=== PATIENT | male | born 1950 | race Caucasian/White ===

== ENCOUNTER 2016-04-29 08:00 | Outpatient (CLI) | payer MEDICARE, OTHER | END 2016-04-29 08:01 | disposition home or self-care (01) | DX: J11.1 Influenza due to unidentified influenza virus with other respiratory manifestations (principal) ==

== ENCOUNTER 2016-11-14 09:32 | Emergency (ER) | payer MEDICARE ==
--- NOTE | 2016-11-14 10:19 | XRAY Preliminary Report ---
Exam: XR Chest 2 View PA/LAT IMPRESSION: Normal 2-view chest radiography. [facility] SITE ID: [id number]
[2016-11-14 10:21] LABS: BASOPHILS # (AUTO) 0.1 10^3/uL (0.0-0.1); BASOPHILS % (AUTO) 0.9 %; EOSINOPHILS # (AUTO) 0.3 10^3/uL (0.0-0.7); EOSINOPHILS % (AUTO) 2.5 %; HCT - HEMATOCRIT 43.7 % (42.0-52.0); LYMPHOCYTES # (AUTO) 2.5 10^3/uL (1.5-3.5); LYMPHOCYTES % (AUTO) 24.7 %; MEAN CORPUSCULAR HEMOGLOBIN 30.8 pg (27.0-31.0); MEAN CORPUSCULAR HGB CONC 34.3 g/dL (32.0-36.0); MEAN CORPUSCULAR VOLUME 89.8 fL (80.0-94.0); MEAN PLATELET VOLUME 8.1 fL (7.4-11.4); MONOCYTES % (AUTO) 9.8 %; NEUTROPHILS # (AUTO) 6.2 10^3/uL (1.5-6.6); NEUTROPHILS % (AUTO) 62.1 %; RED BLOOD COUNT 4.86 10^6/uL (4.70-6.10); RED CELL DISTRIBUTION WIDTH 13.7 % (12.0-15.0); UNCORRECTED WHITE BLOOD COUNT 9.9 x10^3/uL; WHITE BLOOD COUNT 9.9 x10^3/uL (4.8-10.8)
--- NOTE | 2016-11-14 10:22 | XRAY Report ---
EXAM: CHEST RADIOGRAPHY EXAM DATE: 11/14/2016 09:57 AM. CLINICAL HISTORY: Chest Pain. COMPARISON: None. TECHNIQUE: 2 views. FINDINGS: Lungs/Pleura: No focal opacities evident. No pleural effusion. No pneumothorax. Normal volumes. Mediastinum: Heart and mediastinal contours are unremarkable. Other: None. IMPRESSION: Normal 2-view chest radiography. [facility] Referring Provider Line: [phone] SITE ID: [id number]
[2016-11-14 10:33] LABS: ALBUMIN/GLOBULIN RATIO 1.3 (1.0-2.2); BILIRUBIN,TOTAL 1.5 mg/dL (0.2-1.0); CALCIUM 8.9 mg/dL (8.5-10.3); CREATININE 0.9 mg/dL (0.6-1.2); POTASSIUM 4.2 mmol/L (3.5-5.0); TOTAL PROTEIN 7.6 g/dL (6.7-8.2)
[2016-11-14] MEDS ORDERED: SODIUM CHLORIDE FLUSH 0.9% 10 ML SYRINGE IVP ONE (11:23)
[2016-11-14] MEDS ORDERED: LIDOCAINE VISCOUS 2% 15 ML UDC MM STA (11:32)
[2016-11-14] MEDS ORDERED: MAG HYDROX/AL HYDROX/SIMETH 30 ML UDC PO STA (11:32)
[2016-11-14] MEDS ORDERED: MAG HYDROX/AL HYDROX/SIMETH 30 ML UDC ONE (12:02)
[2016-11-14] MEDS ORDERED: LIDOCAINE VISCOUS 2% 15 ML UDC MM ONE (12:02)
--- NOTE | 2016-11-14 12:20 | ED Physician Documentation ---
History of Present Illness - Stated complaint Stated Complaint: CHEST PAIN - Chief complaint Chief Complaint: Cardiac - Additonal information Additional information: hx from pt 66 male x hear murmur but no know CAD developed chest pain / heaviness about midnight was 4/10 severity assoc diaphoresis no soa no fever cough no abd pain did rad to back as night progressed feels like it might be in his esophagus as he drinks water tried antacid s relief pain has subsided now to 0.5/10 but has been present to some extend for 10 hr now no leg swelling or recent travel Review of Systems Constitutional: reports: Sweats. denies: Fever, Chills Cardiac: reports: Chest pain / pressure Respiratory: denies: Dyspnea GI: denies: Abdominal Pain, Nausea, Vomiting Musculoskeletal: reports: Back pain Endocrine: denies: Easy bruising / bleeding Immunocompromised: denies: Immunocompromised PD PAST MEDICAL HISTORY - Past Medical History Cardiovascular: High cholesterol GI: GERD Derm: Herpes zoster - Past Surgical History Past Surgical History: Yes HEENT: Tonsil/Adenoidectomy - Present Medications Home Medications: Ambulatory Orders Medication Instructions Recorded Confirmed Aspirin [Lise] 325 mg PO ONCE 04/13/13 11/14/16 Famciclovir 250 mg PO DAILY 04/13/13 11/14/16 Omeprazole Magnesium 40 mg PO ONCEDAILY 04/13/13 11/14/16 Pravastatin Sodium 40 mg PO DAILY 04/13/13 11/14/16 - Allergies Allergies/Adverse Reactions: Allergies Allergy/AdvReac Type Severity Reaction Status Date / Time No Known Drug Allergies Allergy Verified 11/14/16 09:39 - Social History Does the pt smoke?: No Smoking Status: Never smoker Does the pt drink ETOH?: Yes Does the pt have substance abuse?: No - Immunizations Immunizations are current?: Yes PD ED PE NORMAL - Vitals Vital signs reviewed: Yes - HEENT HEENT: Atraumatic - Neck Neck: Supple, no meningeal sign - Cardiac Cardiac: RRR - Respiratory Respiratory: No respiratory distress - Abdomen Abdomen: Soft, Non tender, Other (no ruq TTP) - Derm Derm: Normal color, No rash - Extremities Extremities: No edema, No calf tenderness / cord - Neuro Neuro: Alert and oriented X 3 Results - Vitals Vitals: Vital Signs - 24 hr 11/14/16 11/14/16 11/14/16 09:36 10:37 11:54 Temperature 36.1 C L 36.3 C L 35.7 C L Heart Rate 78 73 63 Respiratory 18 16 15 Rate Blood Pressure 164/98 H 150/86 H 174/95 H O2 Saturation 99 96 94 11/14/16 12:51 Temperature 36.6 C Heart Rate 75 Respiratory 15 Rate Blood Pressure 155/106 H O2 Saturation 96 Oxygen O2 Source Nasal cannula - EKG (time done) 0945 Rate: Rate (enter#) (69) Rhythm: NSR Earling: Normal Intervals: Normal [place] Ischemia: Normal ST segments - Labs Labs: Laboratory Tests 11/14/16 11/14/16 11/14/16 10:15 10:15 10:15 WBC 9.9 RBC 4.86 Hgb 15.0 Hct 43.7 MCV 89.8 MCH 30.8 MCHC 34.3 RDW 13.7 Plt Count 213 MPV 8.1 Neut # 6.2 Lymph # 2.5 [place] # 1.0 Eos # 0.3 Baso # 0.1 Absolute Nucleated RBC 0.00 Nucleated RBCs 0.0 Sodium 138 Potassium 4.2 Chloride 101 Carbon Dioxide 28 Anion Gap 9.0 BUN 15 Creatinine 0.9 Estimated GFR (MDRD) 84 L Glucose 108 H Calcium 8.9 Total Bilirubin 1.5 H AST 31 ALT 38 Alkaline Phosphatase 66 Troponin I < 0.04 Total Protein 7.6 Albumin 4.3 Globulin 3.3 Albumin/Globulin Ratio 1.3 Lipase 31 - Rads (name of study) 0945 Radiology: See rad report (NACPD) PD MEDICAL DECISION MAKING - ED course ED course: EKG and CE neg after 10 hr of sx CXR no acute, nl mediastinum and pain was not sharp or tearing so doubt dissection PERC neg except age so low risk for PE pt though possibly esophogeal so tried GI cocktail s improvement and elev bili so got sono which showed a 7 mm stone and adenomyomatosis but no acute oumar will reassure and dc with referral to surgeons about GB Departure - Departure Disposition: 01 Home, Self Care Clinical Impression: Biliary colic Chest pain Qualifiers: Chest pain type: unspecified Qualified Code(s): R07.9 - Chest pain, unspecified Condition: Good Instructions: ED Gallstone W Biliary Colic, ED Chest Pain Atypical Unkn Cause Follow-Up: Bob Denise MD [Primary Care Provider] - Comments: Your heart checked out fine - after 10 hr of symptoms your EKG and cardiac enzymes were normal. I would still recommend you tale to Dr Denise about getting stress test to further evaluate you for underlying heart disease Based on your history and exam I do not think you have a blood clot in your lungs. The chest xray did now shows signs or a problem with your aorta. But your bilirubin level was elevated so we got an ultrasound which showed a probable gallstone and gallbladder polyps/benign tumors called ademomyomatosis in your gallbladder - but no signs of a gallbladder infection or blockage Since you are feeling better, it is OK for you to go home I recommend a lot fat diet to prevent further aggravating your gallbladder And follow up with Dr Denise to get a referral to the surgeons to discuss removing your gallbladder. Also please have Dr Denise recheck your blood pressure and discuss getting a stress test Return if worse
[2016-11-14 12:51] VITALS: BP 155/106
--- NOTE | 2016-11-14 13:01 | Ultrasound Preliminary Report ---
Exam: US Abdomen Limited IMPRESSION: 1. Polyp versus non-mobile stone measuring 7 mm in the gallbladder. Additional adenomyomatosis is see n. No evidence of gallbladder wall thickening to suggest cholecystitis. 2. Otherwise, unremarkable exam. [facility] SITE ID: [id number]
--- NOTE | 2016-11-14 13:04 | Ultrasound Report ---
EXAM: ABDOMEN ULTRASOUND LIMITED, RUQ EXAM DATE: 11/14/2016 12:30 PM. CLINICAL HISTORY: Chest, back and epigastric pain. COMPARISON: None. TECHNIQUE: Real-time scanning was performed with static images obtained. FINDINGS: Liver: Normal in size and echotexture. Hepatic and is 13.4 cm. Main portal vein flow: Hepatopetal. Gallbladder: There is a polyp versus a nonmobile stone measuring 7 mm. Additional focus of adenomyoma tosis is seen in the anterior gallbladder wall. No gallbladder wall thickening is seen. Negative sono graphic Campos sign. Biliary System: CBD measures 5.4 mm. No intrahepatic or extrahepatic ductal dilatation. Other: Right kidney is grossly within normal limits measuring up to 11.9 cm. Pancreas, IVC and mid/di stal aorta are obscured by bowel gas. Proximal aorta is noted to be within normal limits measuring 2. 8 cm. IMPRESSION: 1. Polyp versus non-mobile stone measuring 7 mm in the gallbladder. Additional adenomyomatosis is see n. No evidence of gallbladder wall thickening to suggest cholecystitis. 2. Otherwise, unremarkable exam. [facility] Referring Provider Line: [phone] SITE ID: [id number]
== END 2016-11-14 13:50 | disposition home or self-care (01) ==
LOC: ED 09:32
DX: K80.50 Calculus of bile duct without cholangitis or cholecystitis without obstruction (principal); R07.9 Chest pain, unspecified; E78.00 Pure hypercholesterolemia, unspecified; K21.9 Gastro-esophageal reflux disease without esophagitis; Z79.82 Long term (current) use of aspirin; R17 Unspecified jaundice
CPT/HCPCS: 36415; 71020; 76705; 80053; 83690; 84484; 85025; 93005; 99284; A9270

== ENCOUNTER 2016-11-22 08:41 | Outpatient (CLI) | payer MEDICARE ==
[2016-11-22 18:09] LABS: BASOPHILS % (AUTO) 0.8 %; EOSINOPHILS # (AUTO) 0.3 10^3/uL (0.0-0.7); EOSINOPHILS % (AUTO) 3.9 %; HCT - HEMATOCRIT 44.8 % (42.0-52.0); HGB - HEMOGLOBIN 14.9 g/dL (14.0-18.0); LYMPHOCYTES % (AUTO) 30.6 %; MEAN CORPUSCULAR HEMOGLOBIN 30.8 pg (27.0-31.0); MEAN CORPUSCULAR HGB CONC 33.3 g/dL (32.0-36.0); MEAN CORPUSCULAR VOLUME 92.4 fL (80.0-94.0); MEAN PLATELET VOLUME 8.6 fL (7.4-11.4); MONOCYTES # (AUTO) 0.6 10^3/uL (0.0-1.0); NEUTROPHILS # (AUTO) 3.6 10^3/uL (1.5-6.6); NEUTROPHILS % (AUTO) 55.7 %; NUCLEATED RED BLOOD CELLS AUTO 0.1 /100WBC; RED BLOOD COUNT 4.84 10^6/uL (4.70-6.10); RED CELL DISTRIBUTION WIDTH 13.8 % (12.0-15.0); UNCORRECTED WHITE BLOOD COUNT 6.5 x10^3/uL; WHITE BLOOD COUNT 6.5 x10^3/uL (4.8-10.8)
[2016-11-22 19:04] LABS: ALBUMIN/GLOBULIN RATIO 1.3 (1.0-2.2); BUN - BLOOD UREA NITROGEN 13 mg/dL (6-20); CALCIUM 8.8 mg/dL (8.5-10.3); CARBON DIOXIDE - CO2 27 mmol/L (21-32); CHLORIDE 102 mmol/L (101-111); CHOL/HDL RATIO 2.8 (<5.0); CHOLESTEROL 181 mg/dL; CREATININE 0.9 mg/dL (0.6-1.2); GFR - MDRD 84 (>89); GLUCOSE 83 mg/dL (70-100); HDL CHOLESTEROL 65 mg/dL; LDL/HDL RATIO 1.5 (<3.6); SODIUM 137 mmol/L (135-145); TOTAL PROTEIN 7.4 g/dL (6.7-8.2); TRIGLYCERIDES 96 mg/dL; VLDL CHOLESTEROL 19 mg/dL
[2016-11-23 13:46] LABS: PSA FREE 0.816 ng/mL (0.16-2.81)
[2016-11-23 18:44] LABS: PSA TOTAL 2.545 ng/mL (0.000-2.000)
== END 2016-11-22 08:42 | disposition home or self-care (01) ==
LOC: LAB.S 08:41
PROVIDERS: ATTEND Internal Medicine
DX: Z79.899 Other long term (current) drug therapy (principal); Z12.5 Encounter for screening for malignant neoplasm of prostate; M17.9 Osteoarthritis of knee, unspecified; E78.5 Hyperlipidemia, unspecified
CPT/HCPCS: 36415; 80053; 80061; 85025; G0103; 84153; 84154

== ENCOUNTER 2016-12-16 11:08 | Outpatient (CLI) | payer MEDICARE | END 2016-12-16 11:09 | disposition home or self-care (01) | LOC: DI 11:08 | PROVIDERS: ATTEND Internal Medicine | DX: I35.1 Nonrheumatic aortic (valve) insufficiency (principal); I51.7 Cardiomegaly; E78.5 Hyperlipidemia, unspecified | CPT/HCPCS: 93306 ==

== ENCOUNTER 2017-05-30 08:00 | Outpatient (CLI) | payer MEDICARE ==
[2017-05-30 18:48] LABS: PSA FREE 0.507 ng/mL (0.16-2.81)
[2017-05-30 18:49] LABS: PSA TOTAL 2.348 ng/mL (0.000-2.000)
== END 2017-05-30 08:01 ==
LOC: LAB.S 08:00
PROVIDERS: ATTEND Internal Medicine
DX: R89.9 Unspecified abnormal finding in specimens from other organs, systems and tissues (principal)
CPT/HCPCS: 36415; 84154

== ENCOUNTER 2017-11-28 08:00 | Outpatient (CLI) | payer MEDICARE ==
[2017-11-28 11:58] LABS: BASOPHILS # (AUTO) 0.1 10^3/uL (0.0-0.1); BASOPHILS % (AUTO) 0.9 %; EOSINOPHILS # (AUTO) 0.3 10^3/uL (0.0-0.7); EOSINOPHILS % (AUTO) 4.6 %; HGB - HEMOGLOBIN 14.7 g/dL (14.0-18.0); LYMPHOCYTES # (AUTO) 2.1 10^3/uL (1.5-3.5); LYMPHOCYTES % (AUTO) 34.4 %; MEAN CORPUSCULAR HEMOGLOBIN 31.9 pg (27.0-31.0); MEAN CORPUSCULAR HGB CONC 34.8 g/dL (32.0-36.0); MEAN CORPUSCULAR VOLUME 91.7 fL (80.0-94.0); MONOCYTES # (AUTO) 0.6 10^3/uL (0.0-1.0); NEUTROPHILS # (AUTO) 3.1 10^3/uL (1.5-6.6); NEUTROPHILS % (AUTO) 50.1 %; PLT - PLATELET COUNT 228 10^3/uL (130-450); RED CELL DISTRIBUTION WIDTH 13.8 % (12.0-15.0); WHITE BLOOD COUNT 6.1 x10^3/uL (4.8-10.8)
[2017-11-28 12:21] LABS: ALBUMIN/GLOBULIN RATIO 1.3 (1.0-2.2); ALKALINE PHOSPHATASE 60 IU/L (42-121); ALT ALANINE AMINOTRANSFERASE 28 IU/L (10-60); AST ASPARTATE AMINOTRANSFERASE 28 IU/L (10-42); BUN - BLOOD UREA NITROGEN 14 mg/dL (6-20); CHOL/HDL RATIO 2.7 (<5.0); CHOLESTEROL 191 mg/dL; GFR - MDRD 74 (>89); HDL CHOLESTEROL 71 mg/dL; LDL CHOLESTEROL,CALCULATED 103 mg/dL; LDL/HDL RATIO 1.5 (<3.6); TOTAL PROTEIN 7.2 g/dL (6.7-8.2); VLDL CHOLESTEROL 17 mg/dL
[2017-11-28 12:51] LABS: CALCIUM 8.6 mg/dL (8.5-10.3); CARBON DIOXIDE - CO2 27 mmol/L (21-32); CHLORIDE 104 mmol/L (101-111); GLUCOSE 97 mg/dL (70-100); SODIUM 138 mmol/L (135-145)
== END 2017-11-28 08:01 ==
LOC: LAB.S 08:00
PROVIDERS: ATTEND Internal Medicine
DX: Z12.5 Encounter for screening for malignant neoplasm of prostate (principal); I35.1 Nonrheumatic aortic (valve) insufficiency; M17.9 Osteoarthritis of knee, unspecified; E78.5 Hyperlipidemia, unspecified; Z79.899 Other long term (current) drug therapy
CPT/HCPCS: 36415; 80053; 80061; 85025; G0103; 83721; 84153

== ENCOUNTER 2018-04-20 09:07 | Outpatient (CLI) | payer MEDICARE ==
--- NOTE | 2018-04-20 11:29 | XRAY Report ---
Reason: BILATERAL PRIMARY OSTEOARTHRITIS OF KNEE Procedure Date: 04/20/2018 Accession Number: [id number] / [id number] Procedure: XR - Knee 3 View BILAT CPT Code: FULL RESULT: EXAMS: 1. RIGHT KNEE RADIOGRAPHY 2. LEFT KNEE RADIOGRAPHY EXAM DATE:04/20/2018 09:14 AM. CLINICAL HISTORY:Bilateral primary osteoarthritis of knee. COMPARISON: X-ray right knee 3 views 02/11/2010 10:19 AM. TECHNIQUE: 3 views each. FINDINGS: Right Knee: Bones: Normal. No fractures or bone lesions. Joints: Mild narrowing of the weight-bearing compartments, medially predominant. No effusion. No subluxations. Soft Tissues: Normal. No soft tissue swelling. Left Knee: Bones: Normal. No fractures or bone lesions. Joints: Mild narrowing of the weight-bearing compartments, medially predominant. No effusion. No subluxations. Soft Tissues: Normal. No soft tissue swelling. IMPRESSION: Mild bilateral degenerative changes. [facility]
== END 2018-04-20 09:08 | disposition home or self-care (01) ==
LOC: DI 09:07
PROVIDERS: ATTEND Internal Medicine
DX: M17.0 Bilateral primary osteoarthritis of knee (principal)

== ENCOUNTER 2018-10-05 12:04 | Outpatient (CLI) | payer MEDICARE ==
--- NOTE | 2018-10-06 13:56 | MRI Report ---
Reason: PAIN IN LEFT AND RIGHT KNEES Procedure Date: 10/05/2018 Accession Number: [id number] / [id number] Procedure: MRI - Knee RT W/O CPT Code: FULL RESULT: EXAM: RIGHT KNEE MRI WITHOUT CONTRAST EXAM DATE: 10/05/2018 12:54 PM. CLINICAL HISTORY: Pain in left and right knees. COMPARISON: None. TECHNIQUE: Multiplanar, multisequence T1-weighted and fluid-sensitive sequences of the knee without contrast. Other: None. FINDINGS: Bones: There is a tiny amount of subjacent marrow edema at the lateral tibial plateau. No fracture lines. Also noted is some subjacent marrow edema on both sides of the lateral aspect of the patellofemoral joint. Articular Cartilage: Some grade 3-4 chondromalacia is seen at the posterior weight-bearing aspect of the lateral tibial plateau. Broad areas of grade 3-4 chondromalacia on both sides of the lateral aspect of the patellofemoral joint. Medial Meniscus: The medial meniscus is intact. Lateral Meniscus: The lateral meniscus is intact. Cruciate Ligaments: The anterior and posterior cruciate ligaments are intact. Collateral Ligaments: The medial collateral and lateral collateral ligamentous structures are intact. Tendons: The quadriceps, patellar, semimembranosus, and popliteus tendons are unremarkable. Musculature: No edema or fatty atrophy. Other: Trace joint effusion. No popliteal cyst. Single focal loose body is seen on MRI on the sagittals. This is posterior to the distal PCL on series 501 image 13. The medial and lateral retinacula are intact. Subcutaneous edema and swelling is seen anteriorly. Series 401 image 17. IMPRESSION: 1. Tiny amount of subjacent marrow edema at the lateral tibial plateau. Some grade 3-4 chondromalacia also seen in this location. Also, some subjacent marrow edema on both sides of the lateral aspects of the patellofemoral articulation, associated with some grade 4 chondromalacia. 2. Menisci, cruciates and collaterals appear unremarkable. 3. Trace joint effusion, single focal loose body seen on the MRI study on the sagittals, posterior to the distal PCL. Subcutaneous edema and swelling is seen anteriorly. [facility]
--- NOTE | 2018-10-06 14:30 | MRI Report ---
Reason: PAIN IN LEFT AND RIGHT KNEES Procedure Date: 10/05/2018 Accession Number: [id number] / [id number] Procedure: MRI - Knee LT W/O CPT Code: FULL RESULT: EXAM: LEFT KNEE MRI WITHOUT CONTRAST EXAM DATE: 10/05/2018 01:24 PM. CLINICAL HISTORY: Pain in left and right knees. COMPARISON: None. TECHNIQUE: Multiplanar, multisequence T1-weighted and fluid-sensitive sequences of the knee without contrast. Other: None. FINDINGS: Bones: There is a small amount of abnormal marrow signal seen at the lateral patellar facet and lateral trochlear groove. Also a small amount of marrow edema is seen at the medial patellar facet as well. 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 Medial Meniscus: The medial meniscus is intact. Lateral Meniscus: Some abnormal signal is seen at the undersurface of the posterior horn of the lateral meniscus without a displaced fragment. Series 501 image 8, series 501 image 11. Cruciate Ligaments: The anterior and posterior cruciate ligaments are intact. Collateral Ligaments: The medial collateral and lateral collateral ligamentous structures are intact. Tendons: The quadriceps, patellar, semimembranosus, and popliteus tendons are unremarkable. Musculature: No edema or fatty atrophy. Other: Small to moderate joint effusion. No popliteal cyst. No loose bodies. Retinacula is intact. 6.7 mm lateral patellar subluxation without dislocation. The subcutaneous tissues and fat pads are unremarkable. IMPRESSION: 1. 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 Similar grade IV chondromalacia and subjacent marrow edema at the medial patellar facet. 2. Lateral meniscus shows undersurface degenerative tear of the posterior horn. No displaced fragment. Remainder of lateral meniscus, the medial meniscus, cruciates and collaterals appear normal. 3. Small to moderate joint effusion. No popliteal cyst or loose bodies. 6.7 mm lateral patellar subluxation without dislocation. [facility]
== END 2018-10-05 12:05 | disposition home or self-care (01) ==
LOC: DI 12:04
PROVIDERS: ATTEND Orthopaedic Surgery
DX: M94.261 Chondromalacia, right knee (principal); M25.461 Effusion, right knee; M23.41 Loose body in knee, right knee; R60.0 Localized edema; M22.42 Chondromalacia patellae, left knee; S83.282A Other tear of lateral meniscus, current injury, left knee, initial encounter; M25.462 Effusion, left knee; S83.012A Lateral subluxation of left patella, initial encounter

== ENCOUNTER 2018-12-11 09:33 | Emergency (ER) | payer MEDICARE ==
[2018-12-11 10:24] LABS: BASOPHILS # (AUTO) 0.1 10^3/uL (0.0-0.1); BASOPHILS % (AUTO) 0.9 %; EOSINOPHILS # (AUTO) 0.1 10^3/uL (0.0-0.7); EOSINOPHILS % (AUTO) 1.3 %; HGB - HEMOGLOBIN 15.4 g/dL (14.0-18.0); LYMPHOCYTES # (AUTO) 1.8 10^3/uL (1.5-3.5); LYMPHOCYTES % (AUTO) 23.2 %; MEAN CORPUSCULAR HEMOGLOBIN 31.2 pg (27.0-31.0); MEAN CORPUSCULAR HGB CONC 33.7 g/dL (32.0-36.0); MEAN CORPUSCULAR VOLUME 92.5 fL (80.0-94.0); MEAN PLATELET VOLUME 10.1 fL (7.4-11.4); MONOCYTES # (AUTO) 0.7 10^3/uL (0.0-1.0); MONOCYTES % (AUTO) 8.5 %; NEUTROPHILS # (AUTO) 5.1 10^3/uL (1.5-6.6); NEUTROPHILS % (AUTO) 65.7 %; PLT - PLATELET COUNT 245 10^3/uL (130-450); RED BLOOD COUNT 4.94 10^6/uL (4.70-6.10); RED CELL DISTRIBUTION WIDTH 13.1 % (12.0-15.0); WHITE BLOOD COUNT 7.7 x10^3/uL (4.8-10.8)
[2018-12-11 10:37] LABS: ALBUMIN 4.4 g/dL (3.2-5.5); ALBUMIN/GLOBULIN RATIO 1.4 (1.0-2.2); CALCIUM 9.1 mg/dL (8.5-10.3); TOTAL PROTEIN 7.5 g/dL (6.7-8.2)
[2018-12-11] MEDS ORDERED: MORPHINE 2 MG/ML CARPUJECT IVP STA (10:41)
[2018-12-11] MEDS ORDERED: LIDOCAINE VISCOUS 2% 15 ML UDC MM STA (10:42)
[2018-12-11] MEDS ORDERED: METOPROLOL 5 MG/5 ML VIAL IVP STA (10:42)
[2018-12-11] MEDS ORDERED: MAG HYDROX/AL HYDROX/SIMETH 30 ML UDC PO STA (10:43)
--- NOTE | 2018-12-11 10:45 | ED Physician Documentation ---
PD HPI CHEST PAIN - Stated complaint Stated Complaint: CHEST PX - Chief complaint Chief Complaint: Cardiac - History obtained from History obtained from: Patient, Family - History of Present Illness Timing - onset: How many weeks ago (1-2 weeks of intermittent lower chest pain, noted mainly in the mornings, but notes it at times during the day. Not exertional, and does not notice it in particular with activity. No dyspnea, nausea, lightheadedness. Not impacted with eating. Today noted feeling of left facial numbness without weakness, and took BP and noted it was elevated.) Timing - onset during: Rest (most often noted each morning when awakening, and improves after getting up.). No: Exertion Timing - details: Intermittant Quality: Aching, Pain Location: Substernal, Epigastric Radiation: No: Neck, Back Improved by: No: Rest Worsened by: No: Exertion, Inspiration, Eating, Movement Associated symptoms: No: Shortness of air, Nausea, Feeling faint / dizzy, General Weakness, Palpitations, Cough Similar symptoms before: Has not had sx before Recently seen: Not recently seen Review of Systems Constitutional: denies: Fever, Chills Nose: denies: Rhinorrhea / runny nose, Congestion Throat: denies: Sore throat Respiratory: denies: Cough GI: reports: Abdominal Pain. denies: Abdominal Swelling, Nausea, Vomiting : denies: Dysuria, Frequency Skin: denies: Rash, Lesions PD PAST MEDICAL HISTORY - Past Medical History Cardiovascular: High cholesterol Respiratory: None Neuro: None Endocrine/Autoimmune: None GI: GERD Derm: Herpes zoster - Past Surgical History Past Surgical History: Yes HEENT: Tonsil/Adenoidectomy - Present Medications Home Medications: Ambulatory Orders Medication Instructions Recorded Confirmed Aspirin [Lise] 325 mg PO ONCE 04/13/13 11/14/16 Famciclovir 250 mg PO DAILY 04/13/13 11/14/16 Omeprazole Magnesium 40 mg PO ONCEDAILY 04/13/13 11/14/16 Pravastatin Sodium 40 mg PO DAILY 04/13/13 11/14/16 Sucralfate [Carafate] 1 gm PO ACHS #60 tablet 12/11/18 - Allergies Allergies/Adverse Reactions: Allergies Allergy/AdvReac Type Severity Reaction Status Date / Time No Known Drug Allergies Allergy Verified 11/14/16 09:39 - Social History Does the pt smoke?: No Smoking Status: Never smoker Does the pt drink ETOH?: Yes Does the pt have substance abuse?: No - Immunizations Immunizations are current?: Yes PD ED PE NORMAL - Vitals Vital signs reviewed: Yes - General General: Alert and oriented X 3, No acute distress, Well developed/nourished - HEENT HEENT: Pharynx benign - Neck Neck: Supple, no meningeal sign, No adenopathy - Cardiac Cardiac: RRR, No murmur - Respiratory Respiratory: Clear bilaterally, Other (no chestwall tenderness) - Abdomen Abdomen: Normal bowel sounds, Soft, Non tender, Non distended, No organomegaly - Derm Derm: Normal color, Warm and dry - Extremities Extremities: No deformity, No tenderness to palpate, Normal ROM s pain, No edema, No calf tenderness / cord - Neuro Neuro: Alert and oriented X 3, No motor deficit, Normal speech Results - Vitals Vitals: Vital Signs - 24 hr 12/11/18 12/11/18 12/11/18 09:40 09:55 10:33 Temperature 36.9 C Heart Rate 104 H 94 91 Respiratory 18 16 18 Rate Blood Pressure 193/115 H 159/103 H 158/99 H O2 Saturation 98 97 98 12/11/18 12/11/18 12/11/18 11:00 11:16 11:18 Temperature Heart Rate 85 71 Respiratory 12 67 H Rate Blood Pressure 144/96 H 144/96 H 157/95 H O2 Saturation 97 98 12/11/18 12/11/18 12/11/18 11:20 11:23 13:30 Temperature Heart Rate 74 68 71 Respiratory 14 16 14 Rate Blood Pressure 152/100 H 148/104 H 165/101 H O2 Saturation 98 98 98 12/11/18 12/11/18 12/11/18 13:52 14:00 16:00 Temperature 36.8 C Heart Rate 68 71 Respiratory 18 16 Rate Blood Pressure 164/98 H 146/93 H 153/97 H O2 Saturation 98 98 12/11/18 16:45 Temperature 36.4 C L Heart Rate 74 Respiratory 16 Rate Blood Pressure 157/98 H O2 Saturation 97 Oxygen O2 Source Room air - EKG (time done) 09:46 Rate: Rate (enter#) (93) Rhythm: NSR Wright: Normal Intervals: Normal [place] QRS: Normal Ischemia: Normal ST segments. No: ST elevation c/w ischemia, ST depression - Labs Labs: Laboratory Tests 12/11/18 12/11/18 12/11/18 09:55 09:55 09:55 WBC 7.7 RBC 4.94 Hgb 15.4 Hct 45.7 MCV 92.5 MCH 31.2 H MCHC 33.7 RDW 13.1 Plt Count 245 MPV 10.1 Neut # (Auto) 5.1 Lymph # (Auto) 1.8 [place] # (Auto) 0.7 Eos # (Auto) 0.1 Baso # (Auto) 0.1 Absolute Nucleated RBC 0.00 Nucleated RBC % 0.0 D-Dimer Sodium 138 Potassium 3.9 Chloride 102 Carbon Dioxide 25 Anion Gap 11.0 BUN 16 Creatinine 1.0 Estimated GFR (MDRD) 74 L Glucose 153 H Calcium 9.1 Magnesium Total Bilirubin 1.0 AST 27 ALT 26 Alkaline Phosphatase 61 Troponin I High Sens B-Natriuretic Peptide 17 Total Protein 7.5 Albumin 4.4 Globulin 3.1 Albumin/Globulin Ratio 1.4 Lipase 47 12/11/18 12/11/18 12/11/18 09:55 09:55 09:55 WBC RBC Hgb Hct MCV MCH MCHC RDW Plt Count MPV Neut # (Auto) Lymph # (Auto) [place] # (Auto) Eos # (Auto) Baso # (Auto) Absolute Nucleated RBC Nucleated RBC % D-Dimer < 200.0 L Sodium Potassium Chloride Carbon Dioxide Anion Gap BUN Creatinine Estimated GFR (MDRD) Glucose Calcium Magnesium 2.3 Total Bilirubin AST ALT Alkaline Phosphatase Troponin I High Sens 3.3 B-Natriuretic Peptide Total Protein Albumin Globulin Albumin/Globulin Ratio Lipase - Rads (name of study) chest xray Radiology: Prelim report reviewed (no acute), See rad report chest and neck angio Radiology: Prelim report reviewed (no vascular problems. Neck vessels widely patent. ), See rad report ruq U/S Radiology: Prelim report reviewed (gallstones without cholecystitis), See rad report PD MEDICAL DECISION MAKING - ED course Complexity details: reviewed results (no evidence for ACS, lung, vascular nor upper abd process. ), re-evaluated patient, considered differential (the facial numbness without weakness may be referred from chest pain (but no shoulder discomfort). However, consider vascular issue, early shingles, early bells, or something else. he has had nonexertional CP for a week, mostly in mornings; seems likely to be GI.), d/w patient Departure - Departure Disposition: 01 Home, Self Care Clinical Impression: Left facial numbness Chest pain Qualifiers: Chest pain type: precordial pain Qualified Code(s): R07.2 - Precordial pain Condition: Stable Record reviewed to determine appropriate education?: Yes Instructions: ED Chest Pain Atypical Unkn Cause Follow-Up: Mesfin Griffith MD [Primary Care Provider] - Prescriptions: Sucralfate [Carafate] 1 gm PO ACHS #60 tablet Comments: There is no indication of heart lung or vascular problems causing your chest pain. He has some gallstones but no signs of gallbladder inflammation. Pancreas and liver appear normal by blood tests. The pattern of the pain does not sound like angina/heart disease. Consider the idea of some irritation of the stomach or esophagus. Increase your omeprazole to twice daily for the next 10 days. Add sucralfate to coat the stomach 3 or 4 times daily over the next week. Hold your baby aspirin for 1 to 2 weeks in case this is irritating her stomach. See how your chest pain does over the next several days to week and follow-up with your primary care if not improved. The numbness feeling on the left side of the face does not appear to be vascular with good blood flow into the neck area. Consider the possibility of early Broderick's palsy or even nerve inflammation like shingles. We would see how this progresses over the next few days if other symptoms develop such as weakness to it or any rash or pain. Discharge Date/Time: 12/11/18 16:46
--- NOTE | 2018-12-11 11:03 | XRAY Report ---
Reason: cp Procedure Date: 12/11/2018 Accession Number: [id number] / [id number] Procedure: XR - Chest 1 View X-Ray CPT Code: 52624 FULL RESULT: EXAM: CHEST RADIOGRAPHY EXAM DATE: 12/11/2018 10:30 AM. CLINICAL HISTORY: Chest pain for 1 week. COMPARISON: CHEST 2 VIEW PA/LAT 11/14/2016 9:53 AM. TECHNIQUE: 1 view. FINDINGS: Lungs/Pleura: No focal opacities evident. No pleural effusion. No pneumothorax. Mediastinum: Heart size normal. Slight tortuosity in the descending thoracic aorta, unchanged. Other: None. IMPRESSION: No evidence of active cardiopulmonary disease. [facility]
[2018-12-11] MEDS ORDERED: IOVERSOL 320 100 ML VIAL IVP ONE ×2 (11:04→12:39)
--- NOTE | 2018-12-11 12:49 | CT Report ---
Reason: left facial numbness this morning Procedure Date: 12/11/2018 Accession Number: [id number] / [id number] Procedure: CT - ANGIO NECK W CPT Code: FULL RESULT: EXAM: CT ANGIOGRAM NECK EXAM DATE: 12/11/2018 12:06 PM. CLINICAL HISTORY: Left facial numbness this morning. COMPARISON: Accompanied CT chest angiogram. TECHNIQUE: Routine axial helical imaging was performed from the skull base through the aortic arch. Reconstructions: Routine multiplanar 3D MIP reconstructions. IV Contrast: OPTI 320 90ML. Evaluation of arterial stenosis is based on a NASCET method of measurement. In accordance with CT protocol optimization, one or more of the following dose reduction techniques were utilized for this exam: automated exposure control, adjustment of mA and/or KV based on patient size, or use of iterative reconstructive technique. Findings: Relevant images are indicated (image number, series number). Aortic arch: Widely patent, normal configuration of the great vessels. Left carotid artery: Widely patent. Right carotid artery: Widely patent. Left vertebral artery: Widely patent. Right vertebral artery: Widely patent. Limited evaluation lung apices are negative. Soft tissue structures in the neck are unremarkable, fairly, thyroid not enlarged. Mild/moderate multilevel cervical spondylosis. Accentuated lordosis. Impressions: 1. Widely patent aortic arch, bilateral carotid and vertebral arteries. No atherosclerotic disease. 2. Mild/moderate multilevel cervical spondylosis, accentuated cervical lordosis. [facility]
--- NOTE | 2018-12-11 13:07 | CT Report ---
Reason: chest pain for a week; eval aorta Procedure Date: 12/11/2018 Accession Number: [id number] / [id number] Procedure: CT - ANGIO CHEST W/WO CPT Code: FULL RESULT: EXAM: CTA CHEST EXAM DATE: 12/11/2018 12:06 PM. CLINICAL HISTORY: Chest pain for a week; eval aorta.. COMPARISON: None. TECHNIQUE: Prior to and following intravenous administration of OPTI 320 90ML, multiplanar 3D/MIP reconstruction of the thoracic aorta was performed. In accordance with CT protocol optimization, one or more of the following dose reduction techniques were utilized for this exam: automated exposure control, adjustment of mA and/or KV based on patient size, or use of iterative reconstructive technique. FINDINGS: Vascular Structures: Normal caliber thoracic aorta without evidence for aneurysm rupture. No aortic intramural hematoma seen. No dissection flap is evident. Pulmonary arteries are normal in caliber. No central pulmonary artery filling defect is seen on somewhat limited evaluation. Lungs/Pleura: Basilar subpleural reticulation may reflect early manifestation of interstitial pulmonary disease. No other focal airspace consolidation. No pleural effusion or pneumothorax. Mediastinum: Normal heart size. No pericardial effusion. No pathologically enlarged mediastinal or hilar lymph nodes. No central pulmonary artery filling defects. Upper Abdomen: Unremarkable. Other: Osteopenia. Degenerative disk disease in the spine. Mild anterior wedging of T4-T6 could reflect age indeterminate, possibly remote compression fractures. IMPRESSION: 1. Normal caliber thoracic aorta without evidence for aneurysm, rupture, or dissection. No intramural hematoma seen. 2. No central pulmonary emboli are evident. 3. Lower lung predominant subpleural reticulation may be an early manifestation of interstitial pulmonary disease. Correlation with patient history is recommended. No other focal airspace consolidation or pleural effusion is seen. RADIA
[2018-12-11] MEDS ORDERED: FAMOTIDINE 20 MG/2 ML VIAL IVP STA (13:58)
--- NOTE | 2018-12-11 15:26 | Ultrasound Report ---
Reason: lower chest pain for couple weeks Procedure Date: 12/11/2018 Accession Number: [id number] / [id number] Procedure: US - Abdomen Limited CPT Code: FULL RESULT: EXAM: ABDOMEN ULTRASOUND LIMITED, RUQ EXAM DATE: 12/11/2018 02:51 PM. CLINICAL HISTORY: Lower chest pain for couple weeks. COMPARISON: ABDOMEN LIMITED 11/14/2016 11:39 AM. TECHNIQUE: Real-time scanning was performed with static images obtained. FINDINGS: LIVER: Normal in size but increased in echogenicity. No suspicious hepatic masses identified. The liver surface is smooth. PORTAL VEIN: Patent with hepatopedal flow. BILIARY: The common bile duct is normal in caliber. No intrahepatic biliary dilatation. GALLBLADDER: Nonmobile 8 mm gallstone within the gallbladder neck. Again waist like gallbladder wall adenomyomatosis at the junction of the body and fundus, similar to prior. RIGHT KIDNEY: Normal in size without hydronephrosis, large shadowing stones or perinephric fluid collections. PANCREAS: The visualized portions of the pancreas are unremarkable. IVC: The visualized portions of the inferior vena cava are unremarkable. AORTA: The visualized aorta is normal in caliber. ASCITES: No significant free fluid. Measurements: Liver: 13.8 cm Gallbladder wall thickness: 2.6 mm Common bile duct: 3 mm Right kidney: 10.7 cm IMPRESSION: 1. Gallstones. No evidence of acute cholecystitis. 2. Again waist-like gallbladder adenomyomatosis. 3. Fatty liver. RADIA
[2018-12-11 16:46] VITALS: BP 157/98
== END 2018-12-11 16:46 | disposition home or self-care (01) ==
LOC: ED 09:33
DX: R07.2 Precordial pain (principal); R20.0 Anesthesia of skin; K80.20 Calculus of gallbladder without cholecystitis without obstruction; K21.9 Gastro-esophageal reflux disease without esophagitis; Z79.82 Long term (current) use of aspirin
CPT/HCPCS: 36415; 70498; 71045; 71275; 76705; 80053; 83690; 83735; 83880; 84484; 85025; 85379; 93005; 96374; 96375; 99284; A9270; Q9967

== ENCOUNTER 2019-01-24 08:57 | Outpatient (CLI) | payer MEDICARE | END 2019-01-24 08:58 | disposition home or self-care (01) | LOC: DI 08:57 | PROVIDERS: ATTEND Internal Medicine | DX: R01.1 Cardiac murmur, unspecified (principal); I51.7 Cardiomegaly | CPT/HCPCS: 93306 ==

== ENCOUNTER 2019-12-31 05:58 | Emergency (ER) | payer MEDICARE ==
[2019-12-31 06:25] LABS: BASOPHILS # (AUTO) 0.1 10^3/uL (0.0-0.1); BASOPHILS % (AUTO) 0.6 %; EOSINOPHILS # (AUTO) 0.2 10^3/uL (0.0-0.7); EOSINOPHILS % (AUTO) 1.8 %; HGB - HEMOGLOBIN 15.9 g/dL (14.0-18.0); LYMPHOCYTES % (AUTO) 20.9 %; MEAN CORPUSCULAR HGB CONC 34.6 g/dL (32.0-36.0); MEAN CORPUSCULAR VOLUME 92.6 fL (80.0-94.0); MEAN PLATELET VOLUME 9.9 fL (7.4-11.4); MONOCYTES # (AUTO) 0.8 10^3/uL (0.0-1.0); NEUTROPHILS # (AUTO) 6.5 10^3/uL (1.5-6.6); NEUTROPHILS % (AUTO) 68.3 %; PLT - PLATELET COUNT 234 10^3/uL (130-450); RED BLOOD COUNT 4.97 10^6/uL (4.70-6.10); RED CELL DISTRIBUTION WIDTH 13.2 % (12.0-15.0); WHITE BLOOD COUNT 9.5 x10^3/uL (4.8-10.8)
[2019-12-31 06:35] LABS: ALBUMIN 4.3 g/dL (3.2-5.5); ALBUMIN/GLOBULIN RATIO 1.3 (1.0-2.2); BILIRUBIN,TOTAL 0.8 mg/dL (0.2-1.0); TOTAL PROTEIN 7.7 g/dL (6.7-8.2)
--- NOTE | 2019-12-31 06:46 | ED Physician Documentation ---
PD HPI CHEST PAIN - Stated complaint Stated Complaint: CHEST PAIN - Chief complaint Chief Complaint: Cardiac - History obtained from History obtained from: Patient - History of Present Illness Timing - onset: How many days ago (2) Timing - onset during: Light activity Timing - details: Gradual onset Pain level now: 2 Quality: Aching, Pain Location: Substernal Radiation: Other (does not radiate) Improved by: Nothing Worsened by: Other (no exacerbating factors) Associated symptoms: No: Shortness of air, Diaphoresis, Nausea, Vomiting Similar symptoms before: Has not had sx before Recently seen: Not recently seen - Additional information Additional information: c/o midline chest pain, described as aching, constant x 2 days but waxing and waning without apparent exacerbating or ameliorating factors. took omeprazole without improvement Review of Systems Constitutional: reports: Reviewed and negative Cardiac: reports: Chest pain / pressure. denies: Palpitations, Pedal edema, Calf pain Respiratory: reports: Reviewed and negative GI: reports: Reviewed and negative Musculoskeletal: denies: Extremity swelling PD PAST MEDICAL HISTORY - Past Medical History Past Medical History: Yes Cardiovascular: High cholesterol Respiratory: None Neuro: None Endocrine/Autoimmune: None GI: GERD Derm: Herpes zoster - Past Surgical History Past Surgical History: Yes HEENT: Tonsil/Adenoidectomy - Present Medications Home Medications: Ambulatory Orders Medication Instructions Recorded Confirmed Aspirin [Lise] 325 mg PO ONCE 04/13/13 11/14/16 Famciclovir 250 mg PO DAILY 04/13/13 11/14/16 Omeprazole Magnesium 40 mg PO ONCEDAILY 04/13/13 11/14/16 Pravastatin Sodium 40 mg PO DAILY 04/13/13 11/14/16 Sucralfate [Carafate] 1 gm PO ACHS #60 tablet 12/11/18 Sucralfate [Carafate] 1 gm PO ACHS #60 tablet 12/31/19 - Allergies Allergies/Adverse Reactions: Allergies Allergy/AdvReac Type Severity Reaction Status Date / Time No Known Drug Allergies Allergy Verified 12/31/19 06:09 - Social History Does the pt smoke?: No Smoking Status: Never smoker Does the pt drink ETOH?: Yes Does the pt have substance abuse?: No - Immunizations Immunizations are current?: Yes PD ED PE NORMAL - Vitals Vital signs reviewed: Yes - General General: Alert and oriented X 3, No acute distress, Well developed/nourished - HEENT HEENT: Moist mucous membranes - Neck Neck: Supple, no meningeal sign, No JVD - Cardiac Cardiac: RRR, No murmur, No gallop, No rub - Respiratory Respiratory: No respiratory distress, Clear bilaterally - Abdomen Abdomen: Soft, Non tender - Derm Derm: Normal color, Warm and dry, No rash - Extremities Extremities: No edema Results - Vitals Vitals: Vital Signs - 24 hr 12/31/19 12/31/19 12/31/19 06:00 06:30 07:00 Temperature 36.9 C Heart Rate 100 84 82 Respiratory 20 18 16 Rate Blood Pressure 182/115 H 138/91 H 145/98 H O2 Saturation 99 99 98 12/31/19 12/31/19 12/31/19 07:30 08:00 08:18 Temperature 36.8 C Heart Rate 76 79 Respiratory 16 18 Rate Blood Pressure 153/101 H 134/94 H O2 Saturation 99 98 Oxygen O2 Source Room air - EKG (time done) No standard instances Rate: Rate (enter#) (89) Rhythm: NSR [place]: Normal Intervals: Normal NV QRS: Normal Ischemia: Normal ST segments - Labs Labs: Laboratory Tests 12/31/19 12/31/19 12/31/19 06:14 06:14 06:14 WBC 9.5 RBC 4.97 Hgb 15.9 Hct 46.0 MCV 92.6 MCH 32.0 H MCHC 34.6 RDW 13.2 Plt Count 234 MPV 9.9 Neut # (Auto) 6.5 Lymph # (Auto) 2.0 Moca # (Auto) 0.8 Eos # (Auto) 0.2 Baso # (Auto) 0.1 Absolute Nucleated RBC 0.00 Nucleated RBC % 0.0 Sodium 136 Potassium 3.8 Chloride 98 L Carbon Dioxide 24 Anion Gap 14.0 H BUN 19 Creatinine 1.0 Estimated GFR (MDRD) 74 L Glucose 110 H Calcium 9.0 Total Bilirubin 0.8 AST 28 ALT 32 Alkaline Phosphatase 68 Troponin I High Sens 4.7 Total Protein 7.7 Albumin 4.3 Globulin 3.4 Albumin/Globulin Ratio 1.3 Lipase 43 - Rads (name of study) chest xray Radiology: Prelim report reviewed, See rad report PD MEDICAL DECISION MAKING - ED course Complexity details: reviewed results, re-evaluated patient, considered differential, d/w patient Departure - Departure Disposition: 01 Home, Self Care Clinical Impression: Chest pain Condition: Good Instructions: ED Chest Pain Atypical Unkn Cause, ED Hypertension Poss Follow-Up: Mesfin Griffith MD [Primary Care Provider] - Prescriptions: Sucralfate [Carafate] 1 gm PO ACHS #60 tablet Discharge Date/Time: 12/31/19 08:21
[2019-12-31] MEDS ORDERED: SUCRALFATE 1 GM/10 ML UDC PO STA (08:03)
[2019-12-31 08:12] VITALS: BP 134/94
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
== END 2019-12-31 08:21 | disposition home or self-care (01) ==
LOC: ED 05:58
DX: R07.89 Other chest pain (principal); K21.9 Gastro-esophageal reflux disease without esophagitis; Z79.82 Long term (current) use of aspirin
CPT/HCPCS: 36415; 71046; 80053; 83690; 84484; 85025; 93005; 99284; A9270

== ENCOUNTER 2020-07-08 10:00 | Outpatient (CLI) | payer MEDICARE ==
[2020-07-08 14:57] LABS: BASOPHILS # (AUTO) 0.1 10^3/uL (0.0-0.1); BASOPHILS % (AUTO) 0.8 %; EOSINOPHILS # (AUTO) 0.3 10^3/uL (0.0-0.7); EOSINOPHILS % (AUTO) 3.3 %; HCT - HEMATOCRIT 46.9 % (42.0-52.0); HGB - HEMOGLOBIN 15.6 g/dL (14.0-18.0); LYMPHOCYTES # (AUTO) 2.8 10^3/uL (1.5-3.5); LYMPHOCYTES % (AUTO) 37.5 %; MEAN CORPUSCULAR HEMOGLOBIN 30.4 pg (27.0-31.0); MEAN CORPUSCULAR HGB CONC 33.3 g/dL (32.0-36.0); MEAN CORPUSCULAR VOLUME 91.4 fL (80.0-94.0); MEAN PLATELET VOLUME 10.2 fL (7.4-11.4); MONOCYTES # (AUTO) 0.7 10^3/uL (0.0-1.0); MONOCYTES % (AUTO) 8.8 %; NEUTROPHILS # (AUTO) 3.7 10^3/uL (1.5-6.6); NEUTROPHILS % (AUTO) 49.5 %; PLT - PLATELET COUNT 239 10^3/uL (130-450); RED BLOOD COUNT 5.13 10^6/uL (4.70-6.10); RED CELL DISTRIBUTION WIDTH 13.8 % (12.0-15.0); WHITE BLOOD COUNT 7.5 x10^3/uL (4.8-10.8)
[2020-07-08 15:36] LABS: ALBUMIN 4.5 g/dL (3.2-5.5); ALBUMIN/GLOBULIN RATIO 1.5 (1.0-2.2); ALKALINE PHOSPHATASE 61 IU/L (42-121); ALT ALANINE AMINOTRANSFERASE 24 IU/L (10-60); AST ASPARTATE AMINOTRANSFERASE 27 IU/L (10-42); BUN - BLOOD UREA NITROGEN 18 mg/dL (6-20); CARBON DIOXIDE - CO2 26 mmol/L (21-32); CHLORIDE 101 mmol/L (101-111); CHOL/HDL RATIO 2.5 (<5.0); CHOLESTEROL 204 mg/dL; GFR - MDRD 74 (>89); GLUCOSE 94 mg/dL (70-100); HDL CHOLESTEROL 82 mg/dL; LDL CHOLESTEROL,CALCULATED 108 mg/dL; LDL/HDL RATIO 1.3 (<3.6); POTASSIUM 4.1 mmol/L (3.5-5.0); SODIUM 138 mmol/L (135-145); TOTAL PROTEIN 7.6 g/dL (6.7-8.2); TRIGLYCERIDES 70 mg/dL; VLDL CHOLESTEROL 14 mg/dL
== END 2020-07-08 10:01 | disposition home or self-care (01) ==
LOC: LAB.S 10:00
PROVIDERS: ATTEND Internal Medicine
DX: Z79.899 Other long term (current) drug therapy (principal); E78.5 Hyperlipidemia, unspecified; Z12.5 Encounter for screening for malignant neoplasm of prostate
CPT/HCPCS: 36415; 80053; 80061; 85025; G0103; 83721; 84153

== ENCOUNTER 2021-05-23 08:00 | Outpatient (CLI) | payer MEDICARE ==
--- NOTE | 2021-05-23 14:20 | XRAY Report ---
PROCEDURE: Wrist 4 View RT INDICATIONS: RIGHT WRIST PAIN TECHNIQUE: 4 views of the wrist were acquired. COMPARISON: None FINDINGS: Bones: No fractures or dislocations. No suspicious bony lesions. Scattered 10 first carpometacarpa l joint space and narrowing with subchondral sclerosis and marginal osteophyte Scaphoid view: Unremarkable Soft tissues: No suspicious soft tissue calcifications. IMPRESSION: Intercarpal and first carpometacarpal osteoarthritis Reviewed by: Alvin Kimball MD on 05/23/2021 1:18 PM [facility] Approved by: Alvin Kimball MD on 05/23/2021 1:18 PM [facility] Station ID: [id number]
== END 2021-05-23 23:59 | disposition home or self-care (01) ==
LOC: DI.S 08:00
PROVIDERS: ATTEND Physician Assistant Medical
DX: M18.11 Unilateral primary osteoarthritis of first carpometacarpal joint, right hand (principal); M19.031 Primary osteoarthritis, right wrist

== ENCOUNTER 2021-08-10 08:40 | Outpatient (CLI) | payer MEDICARE ==
[2021-08-10 15:09] LABS: POTASSIUM 4.1 mmol/L (3.5-5.0); URIC ACID 5.1 mg/dL (2.6-7.2)
== END 2021-08-10 08:41 | disposition home or self-care (01) ==
LOC: LAB.S 08:40
PROVIDERS: ATTEND Nurse Practitioner Family
DX: M10.9 Gout, unspecified (principal)
CPT/HCPCS: 36415; 80048; 84550

== ENCOUNTER 2023-03-09 12:27 | Outpatient (CLI) | payer MEDICARE ==
--- NOTE | 2023-03-09 15:12 | XRAY Report ---
PROCEDURE: Knee 3V BL INDICATIONS: BILATERAL KNEE OSTEOARTHRITIS TECHNIQUE: 3 views each of the right and left knees. COMPARISON: Bilateral knee MRIs 10/05/2018. FINDINGS: Bones: No acute fractures or dislocations. No suspicious bony lesions. Moderate to severe joint s pace narrowing is seen in the patellofemoral compartments bilaterally, slightly worse on the right wi th subchondral sclerosis and marginal osteophyte formation. There is mild narrowing of the medial and lateral femorotibial compartment joint spaces bilaterally. Small left suprapatellar enthesophyte. Soft tissues: No knee joint effusion. No suspicious soft tissue calcifications. IMPRESSION: Tricompartmental osteoarthrosis, most notably and moderate to severe at the patellofemoral compartmen ts bilaterally. Reviewed by: Rashi Montgomery MD on 03/09/2023 3:11 PM PST Approved by: Rashi Montgomery MD on 03/09/2023 3:11 PM PST Station ID: [id number]
== END 2023-03-09 12:28 | disposition home or self-care (01) ==
LOC: DI.S 12:27
PROVIDERS: ATTEND Registered Nurse
DX: M17.0 Bilateral primary osteoarthritis of knee (principal)

== ENCOUNTER 2023-05-31 13:04 | Outpatient (CLI) | payer MEDICARE | END 2023-05-31 13:05 | disposition home or self-care (01) | LOC: DI 13:04 | PROVIDERS: ATTEND Registered Nurse | DX: I51.9 Heart disease, unspecified (principal); R01.1 Cardiac murmur, unspecified | CPT/HCPCS: 93307 ==